=== PATIENT | female | born 1995 | race Two or more races ===

== ENCOUNTER 2023-05-31 09:48 | Outpatient (CLI) | payer OTHER | END 2023-05-31 09:50 | disposition home or self-care (01) | LOC: PRENATAL 09:48 | PROVIDERS: ATTEND Obstetrics & Gynecology Maternal & Fetal Medicine | DX: O35.3XX0 Maternal care for (suspected) damage to fetus from viral disease in mother, not applicable or unspecified (principal); O44.00 Complete placenta previa NOS or without hemorrhage, unspecified trimester; Z3A.22 22 weeks gestation of pregnancy ==

== ENCOUNTER 2023-07-12 13:50 | Outpatient (CLI) | payer OTHER | END 2023-07-12 13:51 | disposition home or self-care (01) | LOC: PRENATAL 13:50 | PROVIDERS: ATTEND Obstetrics & Gynecology Maternal & Fetal Medicine | DX: O26.849 Uterine size-date discrepancy, unspecified trimester (principal); O44.00 Complete placenta previa NOS or without hemorrhage, unspecified trimester; Z3A.28 28 weeks gestation of pregnancy ==

== ENCOUNTER 2023-08-23 13:51 | Outpatient (CLI) | payer OTHER | END 2023-08-23 13:56 | disposition home or self-care (01) | LOC: PRENATAL 13:51 | PROVIDERS: ATTEND Obstetrics & Gynecology Maternal & Fetal Medicine | DX: O26.849 Uterine size-date discrepancy, unspecified trimester (principal); O36.8199 Decreased fetal movements, unspecified trimester, other fetus; D68.69 Other thrombophilia; O32.9XX0 Maternal care for malpresentation of fetus, unspecified, not applicable or unspecified; Z3A.34 34 weeks gestation of pregnancy ==

== ENCOUNTER 2023-08-28 18:03 | Inpatient (IN) | payer OTHER ==
[~2023-08-28] VITALS: Ht 165.1 cm; Wt 93.0 kg
[2023-08-28] MEDS ORDERED: BETAMETHASONE ACETATE,SOD PHOS 30 MG/5 ML ML ONE (18:43)
[2023-08-28] MEDS ORDERED: SYNTHROID50 MCG PO (18:54)
[2023-08-28] MEDS ORDERED: PRENA1 CHEW TA1.4 MG PO (18:54)
[2023-08-28] MEDS ORDERED: LEVOTHYROXINE25 MCG PO (18:54)
[2023-08-28] MEDS ORDERED: BETAMETHASONE ACETATE,SOD PHOS 30 MG/5 ML ML IM ONE (19:00)
[2023-08-28 19:04] LABS: PH,URINE 5.5 (5.0-8.0); URINE APPEARANCE Clear; URINE BILIRRUBIN Negative (NEGATIVE); URINE BLOOD Negative; URINE COLOR Yellow; URINE GLUCOSE Negative (NEGATIVE); URINE LEUKOCYTE Small; URINE NITRATE Negative; URINE PROTEIN Negative (NEGATIVE); URINE UROBILINOGEN 0.2 E.U./dl
[2023-08-28 19:07] LABS: URINE BACTERIA 2208.4 uL (0.0-1933); URINE RBC 7.6 uL (0.0-20.8); URINE WBC 53.4 uL (0.0-23.2)
[2023-08-28 19:30] LABS: HEMATOCRIT 32.1 % (36.0-45.00); HEMOGLOBIN 10.7 g/dL (12.0-15.00); MEAN CELL VOLUME 79.1 fL (80.00-100.00); MEAN CORPUSCULAR HEMOGLOBIN 26.2 pg (27.00-32.0); MEAN CORPUSCULAR HGB CONC 33.2 g/dl (32.0-36.0); PLATELET COUNT 272 K/uL (150-450); RED BLOOD COUNT 4.07 M/uL (4.00-6.00); RED CELL DISTRIBUTION WIDTH 14.1 % (11.5-14.5)
[2023-08-28 19:33] LABS: INR < 0.93; PARTIAL THROMBOPLASTIN TIME 25.4 SECONDS (22.0-34.0); PROTHROMBIN TIME 9.6 SECONDS (9.0-11.5)
[2023-08-28 19:37] LABS: BILIRUBIN TOTAL 0.2 mg/dL (0.3-1.2); CALCIUM 9.1 mg/dL (8.5-10.1); CREATININE SERUM 0.48 mg/dL (0.55-1.02); GLOBULINA 3.3 G/DL (2.4-3.5); POTASSIUM 3.9 mEq/L (3.5-5.1); TOTAL PROTEIN 6.3 gm/dL (6.4-8.2)
[2023-08-28] MEDS ORDERED: RINGERS SOLUTION,LACTATED 1,000 ML IV SCH (19:45)
[2023-08-28] MEDS ORDERED: TERBUTALINE SULFATE 1 MG/ML AMPUL SUBCUTANEO SCH (23:00)
[2023-08-28] MEDS ORDERED: PROMETHAZINE HCL 50 MG/ML AMPUL IM ONE (23:00)
[2023-08-29] MEDS ORDERED: LEVOTHYROXINE SODIUM 50 MCG TABLET PO SCH (06:00)
[2023-08-29] MEDS ORDERED: BETAMETHASONE ACETATE,SOD PHOS 30 MG/5 ML ML IM ONE (19:00)
[2023-09-06] MEDS ORDERED: CEFAZOLIN SODIUM 1,000 MG VIAL IV SCH (09:30)
[2023-09-06] MEDS ORDERED: ERYTHROMYCIN BASE 3.5 GM OINT...G. OP ONE (14:24)
[2023-09-06] MEDS ORDERED: OXYTOCIN 10 UNITS/ML VIAL ONE ×2 (14:24→19:21)
[2023-09-06] MEDS ORDERED: MEPERIDINE HCL/PF 25 MG/ML VIAL IV PRN (15:15)
[2023-09-06] MEDS ORDERED: MORPHINE SULFATE 4 MG in 0.9 % SODIUM CHLORIDE 9 ML IV PRN (15:15)
[2023-09-06] MEDS ORDERED: ONDANSETRON HCL 2 MG/ML VIAL IV PRN (15:15)
[2023-09-06] MEDS ORDERED: MEPERIDINE HCL/PF 50 MG/ML VIAL IV SCH (15:39)
[2023-09-06] MEDS ORDERED: PROMETHAZINE HCL 50 MG/ML AMPUL IV SCH (15:40)
[2023-09-06] MEDS ORDERED: SIMETHICONE 125 MG CAPSULE PO SCH (15:40)
[2023-09-06] MEDS ORDERED: CHLORHEXIDINE GLUCONATE 120 ML BOTTLE TOP SCH (15:45)
[2023-09-06] MEDS ORDERED: RINGERS SOLUTION,LACTATED 1,000 ML IV SCH (15:45)
[2023-09-06] MEDS ORDERED: OXYTOCIN 1,000 ML IV SCH (15:45)
[2023-09-06] MEDS ORDERED: ERYTHROMYCIN BASE 1 GM TUBE OP SCH (15:45)
[2023-09-06 19:05] LABS: HEMATOCRIT 36.1 % (36.0-45.00); HEMOGLOBIN 11.9 g/dL (12.0-15.00); MEAN CELL VOLUME 80.4 fL (80.00-100.00); MEAN CORPUSCULAR HEMOGLOBIN 26.5 pg (27.00-32.0); PLATELET COUNT 250 K/uL (150-450); RED BLOOD COUNT 4.48 M/uL (4.00-6.00); RED CELL DISTRIBUTION WIDTH 14.3 % (11.5-14.5)
[2023-09-06 23:10] LABS: ABG PH 7.317 (7.35-7.45)
[2023-09-06 23:11] LABS: ABG PO2 9.9 mmHg (80-100); ABG pCO2 48.7 mmHg (35-45); BASE EXCESS -2.3 mmol/l; BICARBONATE 24.4 mmol/l (23-25); SaO2 8.2 %; Tco2 25.9 mmol/l; o2 21 %
[2023-09-07] MEDS ORDERED: IBUprofen 800 MG TABLET PO PRN (09:00)
[2023-09-07] MEDS ORDERED: ACETAMINOPHEN WITH CODEINE 1 UDTAB TABLET PO PRN (09:00)
[2023-09-07] MEDS ORDERED: DOCUSATE SODIUM 100MG CAP PO SCH (09:00)
[2023-09-09] MEDS ORDERED: IBUPROFEN800 MG PO (07:47)
[2023-09-09] MEDS ORDERED: ACETAMINOPHEN-1 EAC2 PO (07:47)
[2023-09-09] MEDS ORDERED: COLACE100 MG PO (07:48)
== END 2023-09-09 10:08 | disposition home or self-care (01) | DRG 787 ==
LOC: OB/GYN 18:03 → LDR 18:03 → OB/GYN 08-30 11:03
PROVIDERS: Obstetrics & Gynecology; ADMIT Student in an Organized Health Care Education/Training Program; ATTEND Student in an Organized Health Care Education/Training Program
PROC: 4A1HXCZ Monitoring of Products of Conception, Cardiac Rate, External Approach (ICD-10-PCS; 2023-08-28)
PROC: BY4FZZZ Ultrasonography of Third Trimester, Single Fetus (ICD-10-PCS; 2023-08-29)
PROC: BY4FZZZ Ultrasonography of Third Trimester, Single Fetus (ICD-10-PCS; 2023-09-03)
PROC: 10D00Z1 Extraction of Products of Conception, Low, Open Approach (ICD-10-PCS; principal; 2023-09-06 16:15)
DX: O60.14X0 Preterm labor third trimester with preterm delivery third trimester, not applicable or unspecified (principal); O41.03X0 Oligohydramnios, third trimester, not applicable or unspecified; O36.5930 Maternal care for other known or suspected poor fetal growth, third trimester, not applicable or unspecified; O36.8130 Decreased fetal movements, third trimester, not applicable or unspecified; Z3A.34 34 weeks gestation of pregnancy; Z37.0 Single live birth; Z20.822 Contact with and (suspected) exposure to COVID-19